=== PATIENT | male | born 1985 | race Caucasian/White ===

== ENCOUNTER 2024-03-12 15:04 | Emergency (ER) | payer BC, SELFPAY ==
[2024-03-12 15:07] VITALS: BP 131/73; PULSE 60; RESP 16; TEMP 35.9; O2SAT 99; BMI 22.4
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
== END 2024-03-12 16:00 | disposition home or self-care (01) ==
PROVIDERS: Emergency Provider Emergency Medicine
DX: S00.93XA Contusion of unspecified part of head, initial encounter (principal); S62.634A Displaced fracture of distal phalanx of right ring finger, initial encounter for closed fracture; Y04.2XXA Assault by strike against or bumped into by another person, initial encounter
CPT/HCPCS: 70450; 73140; 99284

== ENCOUNTER 2024-04-22 13:14 | Emergency (ER) | payer MEDICAID, SELFPAY ==
[2024-04-22 13:18] VITALS: BP 184/107; PULSE 102; RESP 20; TEMP 36.1; O2SAT 99
--- NOTE | 2024-04-22 13:38 | ED.NURSE ---
Called and spoke w/ Courtney from Poison Control. Pt reported taking yohimbine 2200mg x 4. Per Poison Control, should check EKG for QT prolongation (this is rare) and could manage symptoms w/ ativan. Peak effect is in 45 - 60 min and the half-life is 10 - 15 minutes. Expected side effects are tachycardia, anxiety, nausea/vomiting, anxiety and hypertension. Rarely, seizures have been reported. She will call back later for follow-up. updated on the recommendations.
--- NOTE | 2024-04-22 13:39 | ED.GENADULT ---
HPI - General Adult General Chief complaint: Arrhythmia/Palpitations Stated complaint: Elevated heartrate; medication reaction Time Seen by Provider: 04/22/24 13:16 History of Present Illness HPI narrative: This 38-year-old male comes in feeling shaky after taking 4 tablets of yohimbine. He states that each 1 was 2200 mg. He has not taken this before and did it for experimental reasons. He states that he is feeling tremulous and has some generalized discomfort and chest discomfort. He arrives here with heart rate around 100 beats per minute with elevated blood pressure and the systolic value of 184. He does not take any other medications and denies using any street drugs or alcohol. Related Data Home Medications ?Medication ?Instructions ?Recorded ?Confirmed No Known Home Medications 03/12/24 04/22/24 Allergies Allergy/AdvReac Type Severity Reaction Status Date / Time Penicillins Allergy Mild Hives Verified 04/22/24 13:21 Review of Systems Status of ROS: Reports: 10 or more systems reviewed and unremarkable except as noted in History and below Narrative: Constitutional: No fevers, no weight gain or loss. Eyes: No discharge. No vision changes. HENT: No congestion, no sore throat, no ear pain. Cardiovascular: He reports chest discomfort. Respiratory: No shortness of breath, no wheezes, no cough. Gastrointestinal: No abdominal pain, no vomiting, no diarrhea. Genitourinary: No dysuria, no hematuria. Musculoskeletal: Normal range of motion. Skin: No rashes, no pruritis. Neurological: No dizziness, weakness, sensory change, speech change. He feels tremulous. Endo/Heme/Allergies: No bruising or bleeding. No polydipsia. Pysch: no suicidality, no anxiety, no insomnia. All other systems reviewed and are negative. [facility] Social History Smoking Status: Current every day smoker Do you use any of these nicotine containing products: Vaping Products How often do you have a drink containing alcohol: never AUDIT-C Alcohol total score: 0 Non-prescribed substance use: denies use Exam Narrative: Exam Narrative: Constitutional: Well-developed, well-nourished, no acute distress. HEENT: Normocephalic, atraumatic. Neck: Normal range of motion. Nontender. Supple. Heart: Regular. No murmurs. Normal rate. Borderline tachycardia. Intact distal pulses. Lungs: Clear to auscultation. No chest discomfort. No wheezes, rhonchi, or rales. Abdomen: Normal bowel sounds. Nontender. No rebound tenderness. Genitalia: Deferred. Back: No midline tenderness. Normal range of motion. Extremities: Normal range of motion. No injury. Skin: Intact. No rash. Warm. No pallor. Generalized erythema. Neurologic: No altered sensation. No weakness. Alert and oriented. Psychiatric: No suicidality. No anxiety or depression. No insomnia. Nursing notes and vitals signs are reviewed. Const: Vital Signs, click to edit/add: Vital Signs - 24 hr 04/22/24 13:18 Temperature 96.9 F L Pulse Rate [Pulse Oximeter] 102 H Respiratory Rate 20 Blood Pressure [Ri ght Upper Arm] 184/107 H Pulse Oximetry 99 Oxygen Delivery Me thod Room Air Course Vital Signs Vital signs: Initial Vital Signs Temperature 96.9 F L 04/22/24 13:18 Temperature Source Temporal Artery Scan 04/22/24 13:18 Pulse Rate 102 H 04/22/24 13:18 Pulse Rhythm Regular 04/22/24 13:18 Respiratory Rate 20 04/22/24 13:18 Blood Pressure 184/107 H 04/22/24 13:18 Blood Pressure Mean 132 H 04/22/24 13:18 Blood Pressure Position Sitting 04/22/24 13:18 Pulse Oximetry 99 04/22/24 13:18 Oxygen Delivery Method Room Air 04/22/24 13:18 Vital Signs Temperature 96.9 F L 04/22/24 13:18 Pulse Rate 102 H 04/22/24 13:18 Respiratory Rate 20 04/22/24 13:18 Blood Pressure 184/107 H 04/22/24 13:18 Pulse Oximetry 99 04/22/24 13:18 Oxygen Delivery Method Room Air 04/22/24 13:18 Temperature 96.9 F L 04/22/24 13:18 Pulse Rate 102 H 04/22/24 13:18 Respiratory Rate 20 04/22/24 13:18 Blood Pressure 184/107 H 04/22/24 13:18 Pulse Oximetry 99 04/22/24 13:18 Oxygen Delivery Method Room Air 04/22/24 13:18 Medications Administered Medications: Discontinued Medications Generic Name Dose Route Start Last Admin Trade Name Freq PRN Reason Stop Dose Admin Lorazepam 1 mg 04/22/24 13:39 10/04/24 13:52 Lorazepam 1 Mg Tablet PO 04/22/24 13:40 1 mg ONCE ONE Administration Medical Decision Making MDM Narrative Medical decision making narrative: This patient comes in with symptoms from taking 4 pills of Yohimbine 2200 mg each. Poison control was contacted and stated that she would benefit from 1 dose of a benzodiazepine. In certain cases it could lead to some prolongation of the QT interval. The patient states that now that he took this about 2 hours prior to arrival. The half life is around I half an hour to 2 hours so this will metabolize rather quickly. EKG shows normal sinus rhythm without any abnormalities. The patient did receive Ativan 1 mg orally and he is feeling better. He is okay to be discharged home. ECG Data Attestation: I personally reviewed and interpreted this ECG as follows: Interpretation: Normal sinus rhythm. Rate is 83 beats per minute. There are no ST or T-wave abnormalities. Discharge Plan Discharge Clinical Impression: Adverse drug effect Patient Disposition: Home, Self-Care Condition: Improved Additional Instructions: Avoid yohimbine. Use [id number] medicines as needed and directed. Follow up with MD return if worsening.. Prescriptions: No Action No Known Home Medications Follow Up/Referrals: Provider,Not a Local [Primary Care Provider] - Stand Alone Forms: [employer] Info Instructions
[2024-04-22] MEDS: LORazepam 1 MG TABLET PO (13:52)
== END 2024-04-22 14:23 | disposition home or self-care (01) ==
PROVIDERS: Emergency Provider Emergency Medicine Emergency Medical Services
DX: R00.2 Palpitations (principal); T50.995A Adverse effect of other drugs, medicaments and biological substances, initial encounter
CPT/HCPCS: 93005; 99284; A9270

== ENCOUNTER 2024-09-24 07:57 | Emergency (ER) | payer MEDICAID, SELFPAY ==
--- OUTSIDE RECORDS SUMMARY | 2024-09-24 07:59 | XMS_ITS | Clinical Summary ---
Author Organization [facility] Address [address] [place] [id number] Care Team Providers Care Umbrella Frame Maker Name Role Phone Debra Ingram Primary Care Provider Allergies Active Allergy Reactions Criticality Noted Date Comments Penicillin G Benzathin,Procain *Unknown - Pt Doesn't Remember 03/11/2011 Medications OLANzapine (ZYPREXA ZYDIS) 10 mg disintegrating tabletIndications:M oderate recurrent major depression (HC),Chemical dependency (HC) Take 1 tablet by mouth at bedtime. 30 tablet 2 4 Active OLANzapine (ZYPREXA ZYDIS) 5 mg disintegrating tabletIndications:M oderate recurrent major depression (HC),Chemical dependency (HC) Take 1 tablet by mouth every 6 hours if needed for Agitation. 30 tablet 0 4 Active Active Problems Problem Noted Date Diagnosed Date Eczema 05/08/2014 Overdose intentional with benadryl 01/05/2013 Suicidal intent 01/05/2013 Chemical dependency 01/05/2013 Alcohol dependence, daily use 12/11/2012 Moderate recurrent major depression 12/11/2012 Nicotine dependence 12/11/2012 Cannabis dependence 12/11/2012 Immunizations Immunization Administration Dates Next Due Meningococcal Vaccine (Menomune) 10/03/2005 Pneumococcal Poly,23-Valent (Pneumovax) 08/04/19 15 Tdap 12/10/2012 Family History Medical History Relation Name Comments Hypertension Brother 2 Drug Abuse Maternal Aunt 2 Cancer Maternal Grandfather lung Alcoholism Maternal Uncle 1 2 Cancer Maternal Uncle 2 stomach Drug Abuse Maternal Uncle 3 2 Arthritis Mother Cancer Mother lung Relation Name Status Comments Brother 1 Alive Brother 2 Father Alive Maternal Aunt Maternal Grandfather Maternal Grandmother Maternal Uncle 1 Maternal Uncle 2 Maternal Uncle 3 Mother Paternal Grandfather Paternal Grandmother Social History Tobacco Use Types Packs/Day Years Used Date Smoking Tobacco: Every Day Cigarettes 1 10 Alcohol Use Standard Drinks/Week Comments Yes 0 (1 standard drink = 0.6 oz pure alcohol) drinks 1/2 to one pint per month Sex and Gender Information Value Date Recorded Sex Assigned at Not on file 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 Gender Identity Not on file Sexual Orientation Not on file Obstetrics History Last Filed Vital Signs Vital Sign Reading Time Taken Comments Blood Pressure 118/71 05/09/2014 4:35 PM CDT Pulse 90 05/09/2014 4:35 PM CDT Temperature 36.2 C (97.1 F) 05/09/2014 4:35 PM CDT Respiratory Rate 16 05/09/2014 4:35 PM CDT Oxygen Saturation 99% 05/09/2014 4:35 PM CDT Inhaled Oxygen Concentration - - Weight 62.4 kg (137 lb 9.6 oz) 05/07/2014 6:07 P M CDT Height 175.3 cm (5' 9.02) 05/07/2014 6:07 PM CD T Body Mass Index 20.31 05/07/2014 6:07 PM CDT Plan of Treatment Health Maintenance Due Date Last Done Comments Depression screening for age 12+ 1997 HIV for age 15-65 2000 BMI (ht and wt on same day) for age 18+ 2003 Hepatitis C screening for ag e 18-79 2003 Lipids for age 35-44 2020 Tetanus booster 12/10/2022 12/10/2012 ([place]) Influenza for age 9-49 03/20/2024 COVID-19 vaccine series ( season) 2024 Tdap Completed 12/10/2012 Pneumococcal series for age 6-49 Aged Out 08/04/19 15 No longer eligible based on patient's age to complete this topic Insurance [facility] Advance Directives * Full Code (Latest Code Status on File) Date Activated Date Inactivated Comments 05/07/2014 6:12 PM 05/10/2014 4:22 PM * Full Code Date Activated Date Inactivated Comments 01/06/2013 7:02 PM 01/17/2013 3:01 PM * Full Code Date Activated Date Inactivated Comments 01/05/2013 2:43 AM 01/06/2013 7:02 PM * Full Code Date Activated Date Inactivated Comments 12/10/2012 3:32 PM 12/16/2012 11:41 AM Care Teams Umbrella Frame Maker Relationship Specialty Start Date End Date Debra Ingram MBBS [address] [place] [id number] PCP - General Internal Medicine 03/18/24
--- OUTSIDE RECORDS SUMMARY | 2024-09-24 07:59 | XMS_ITS | Clinical Summary ---
Author Organization [facility] Address [address] [address] Phone Care Team Providers Care Director Non Profit Name Role Phone Unavailable Primary Care Provider Unavailabl e Allergies Active Allergy Reactions Criticality Noted Date Comments Penicillins Unknown 08/14/2020 Medications LORazepam (Ativan) 0.5 MG tablet TAKE 1 TABLET BY MOUTH DAILY NEEDED 04/11/2022 Active Medical Cannabis Mar Message Only. Active hydrOXYzine HCl (Atarax) 25 MG tablet Take 1 to 2 Tablets by mouth every six hours as needed for anxiety. 30 Tablet 08/11/2023 3:11 PM [employer] 08/11/2023 Active Active Problems Problem Noted Date Diagnosed Date Chemical dependency 01/05/2013 Alcohol dependence, daily use 12/11/2012 Cannabis dependence 12/11/2012 Moderate recurrent major depression 12/11/2012 Immunizations Name Administration Dates Next Due Tdap (7 years and older) 12/23/2022 Social History Tobacco Use Types Packs/Day Years Used Date Smoking Tobacco: Every Day Cigarettes Smokeless Tobacco: Former PHQ-2 Answer Date Recorded PHQ-2 Total 0 04/11/2023 [facility] Custom IPV Answer Date Recorded Do you feel UNSAFE in any of your personal relationships with your family members or any other acquaintances? No 2023 Sex and Gender Information Value Date Recorded Sex Assigned at Not on file Legal Sex Male 7:10 AM [employer] Gender Identity Not on file Sexual Orientation Not on file Obstetrics History Last Filed Vital Signs Vital Sign Reading Time Taken Comments Blood Pressure 128/81 11/02/2023 3:15 AM CDT Pulse 50 11/02/2023 3:12 AM CDT Temperature 37.2 C (98.9 F) 11/02/2023 3:12 AM CDT Respiratory Rate 18 11/02/2023 3:12 AM CDT Oxygen Saturation 98% 11/02/2023 3:15 AM CDT Inhaled Oxygen Concentration - - Weight 72.6 kg (160 lb) 08/29/2023 7:21 AM [employer] Height 170.2 cm (5' 7) 08/11/2023 2:39 PM [employer] Body Mass Index 25.06 08/11/2023 2:39 PM [employer] Plan of Treatment Health Maintenance Due Date Last Done Comments Hepatitis B Vaccine (Standin g Order) (1 of 3 - 19+ 3-dose series) 2004 Pneumococcal/PCV20 Vaccine: Pediatrics (2-5 yrs) and At-Risk Patients (6-49 yrs) (Standing Order) (1 of 2 - PCV) 2004 COVID-19 Vaccine (2023-2 5 season) 2024 Influenza Vaccine Seasonal (Standing Order) (#1) 2024 TETANUS (Standing Order) 12/23/2032 12/23/2022 PERTUSSIS (Standing Order) Completed 12/23/2022 HPV Vaccine (Standing Order) Aged Out No longer eligible based on patient's age to complete this topic [place] [address] [place] [address]
[2024-09-24 08:18] VITALS: BP 113/75; PULSE 86; RESP 18; TEMP 36.1; O2SAT 97; BMI 22.8
--- NOTE | 2024-09-24 08:33 | ED.NAVMDI ---
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 States the symptoms started 1 hour ago. Does admit to smoking marijuana states he does not smoke over a week. Has previously been diagnosed with cyclic vomiting syndrome he states the symptoms seem slightly worse. Has had multiple CT scans before with no concerning abnormalities seen. States he has diffuse abdominal discomfort and is having chills. Has vomited multiple times. States Zofran usually helps a lot. Denies fevers, chest pain, shortness of breath, weakness, numbness. He does states he feels lightheaded. Related Data Previous Rx's ?Medication ?Instructions ?Recorded ondansetron 4 mg disintegrating 4 mg PO Q6H #20 tabs 09/24/24 tablet Allergies Allergy/AdvReac Type Severity Reaction Status Date / Time Penicillins Allergy Mild Hives Verified 04/22/24 13:21 Review of Systems Status of ROS: Reports: 10 or more systems reviewed and unremarkable except as noted in History and below [facility] Social History Smoking Status: Current every day smoker Do you use any of these nicotine containing products: Vaping Products How often do you have a drink containing alcohol: never AUDIT-C Alcohol total score: 0 Non-prescribed substance use: denies use Exam Narrative: Exam Narrative: Const: Well-nourished, Well-developed, in moderate distress Eyes: PERRL, no conjunctival injection, and symmetrical lids HENT: Atraumatic external nose and ears. Moist mucous membranes. Neck: Symmetric, trachea midline, No thyromegaly. CVS: RRR, No murmurs or gallops. Peripheral pulses 2+ and equal in all extremities RESP: Unlabored respiratory effort. Clear to auscultation bilaterally. GI: Nontender/Nondistended, No rebound or guarding. MSK:Extremities w/o deformity, Normal Active ROM Skin: Warm, Dry. No rashes or lesions. Neuro: Normal Muscle tone, No focal neurological deficits. Psych: Awake, Alert, & Oriented x3. Appropriate mood and affect. Const: Vital Signs, click to edit/add: Vital Signs - 24 hr 09/24/24 08:18 Temperature 97.0 F L Pulse Rate [Pulse Oximeter] 86 Respiratory Rate 18 Blood Pressure [Ri ght Upper Arm] 113/75 Pulse Oximetry 97 Oxygen Delivery Me thod Room Air Course Vital Signs Vital signs: Initial Vital Signs Temperature 97.0 F L 09/24/24 08:18 Temperature Source Temporal Artery Scan 09/24/24 08:18 Pulse Rate 86 09/24/24 08:18 Respiratory Rate 18 09/24/24 08:18 Blood Pressure 113/75 09/24/24 08:18 Blood Pressure Mean 87 09/24/24 08:18 Blood Pressure Position Sitting 09/24/24 08:18 Pulse Oximetry 97 09/24/24 08:18 Oxygen Delivery Method Room Air 09/24/24 08:18 Vital Signs Temperature 97.0 F L 09/24/24 08:18 Pulse Rate 86 09/24/24 08:18 Respiratory Rate 18 09/24/24 08:18 Blood Pressure 113/75 09/24/24 08:18 Pulse Oximetry 97 09/24/24 08:18 Oxygen Delivery Method Room Air 09/24/24 08:18 Temperature 97.0 F L 09/24/24 08:18 Pulse Rate 86 09/24/24 08:18 Respiratory Rate 18 09/24/24 08:18 Blood Pressure 113/75 09/24/24 08:18 Pulse Oximetry 97 09/24/24 08:18 Oxygen Delivery Method Room Air 09/24/24 08:18 Medications Administered Medications: Discontinued Medications Generic Name Dose Route Start Last Admin Trade Name Freq PRN Reason Stop Dose Admin Droperidol 2.5 mg 09/24/24 09:45 09/24/24 09:51 Droperidol 2.5 Mg/Ml Inj IV 09/24/24 09:46 2.5 mg ONCE ONE Administration Haloperidol Lactate 5 mg 09/24/24 08:59 09/24/24 09:09 Haloperidol 5 Mg/Ml Inj IV 09/24/24 09:00 5 mg ONCE ONE Administration Ketorolac Tromethamine 15 mg 09/24/24 10:01 09/24/24 10:13 Ketorolac 15 Mg/Ml Inj IVP 09/24/24 10:02 15 mg ONCE ONE Administration Ondansetron HCl 4 mg 09/24/24 08:32 09/24/24 08:36 Ondansetron Odt 4 Mg Tab PO 09/24/24 08:33 4 mg ONCE ONE Administration MDM - Nausea/Vomiting/Diarrhea MDM Narrative Medical decision making narrative: Patient is a 39-year-old male presenting for nausea and vomiting. Does have history of cannabinoid hyperemesis syndrome. Denies smoking for the past week. Initially he does want to try Zofran and not having IV so this was ordered. Zofran did not help so I will order some basic labs including CBC, CMP, lipase and give him Haldol for his vomiting. I will hold off on any CT imaging at this time as he has had multiple CTs in the past with no concerning findings seen. I believe another CT would be unnecessary radiation and is very unlikely to find anything of significance. He was still having some nausea after the Zofran so lab work and Haldol were given. After this he was still having some symptoms since started having some abdominal pain. Toradol given for the abdominal pain. Considering he has had Zofran and Haldol I will order a EKG prior to the door. All to make sure he does not have a prolonged QTC. QTC via the Bazett formula is 444 and it is 436 via the Fridericia formula he is on the borderline of possible prolonged QT. Droperidol was ordered. He is feeling better after the droperidol. Patient would like to go home at this time was Zofran. Will do repeat EKG. Repeat EKG showing improved QT interval. Do feel comfortable sending this patient home Zofran. Lab work returned showing elevated LFTs. ALT higher than AST. Does have history of alcohol abuse but these liver enzymes are more consistent with hepatitis. He also has elevated indirect bilirubin and LDH. This is consistent with hemolytic process or hepatitis. His hemoglobin is normal. Will check for hepatitis-B and hepatitis-C. Hepatitis a send out lab will be ordered. Lipase within normal limits. I do not believe he has obstruction causing his elevated liver enzymes. Does a history of drug use but denies IV drug use. I told him I would like to do an ultrasound at this time to look at any possible liver disease but he declined as he states he is not having sure insert is currently working on getting insurance. Does state he is going to follow-up as soon as he gets insurance. I informed him the importance of follow-up and that this could lead to worsening symptoms. He states he understands. Patient will be discharged. Lab Data Labs: Lab Results 09/24/24 09/24/24 09/24/24 Range/Units 09:00 09:44 10:14 WBC 7.31 (4.50-11.00) K/uL RBC 4.69 (4.30-5.90) m/uL Hgb 15.4 (13.5-17.5) gm/dL Hct 42.9 (37.0-53.0) % MCV 92 (80-100) fL MCH 33 (26-34) pg MCHC 36 (32-36) gm/dL RDW Coeff of Cole 12.6 (11.5-15.5) % Plt Count 175 (140-440) K/uL Neut % (Auto) 66.7 (42.0-72.0) % Lymph % (Auto) 22.6 (20-44) % Juab % (Auto) 8.5 (0.0-11.0) % Eos % (Auto) 1.4 (0.0-7.0) % Baso % (Auto) 0.5 (0.0-3.0) % Neut # (Auto) 4.88 (1.7-7.0) K/uL Lymph # (Auto) 1.65 (0.90-2.90) K/uL Juab # (Auto) 0.60 (0.00-0.90) K/UL Eos # (Auto) 0.10 (0.00-0.50) K/uL Baso # (Auto) 0.04 (0.00-0.30) K/uL Abs Immat Gran (auto) 0.02 (0.00-0.30) K/uL Imm/Tot Granulo (auto) 0.3 % INR 1.03 (0.91-1.10) Sodium 136 (135-149) mmol/L Potassium 4.2 (3.6-5.1) mmol/L Chloride 100 (96-114) mmol/L Carbon Dioxide 19 L (20-32) mmol/L Anion Gap 17 H (7-15) mEq/L BUN 21 (5-24) mg/dL Creatinine 0.7 (0.5-1.5) mg/dL Estimated Creat Clear 136.35 Estimated GFR 120 ml/min Glucose 129 H (60-115) mg/dL Calcium 9.6 (8.4-10.6) mg/dL Total Bilirubin 1.7 H (0.1-1.5) mg/dL Direct Bilirubin 0.6 H (0.0-0.5) mg/dL AST 156 H (12-35) U/L ALT 350 H (4-50) U/L Alkaline Phosphatase 63 (40-150) U/L Lactate Dehydrogenase 379 H (120-246) U/L Total Protein 8.2 (6.0-8.3) g/dL Albumin 5.1 H (3.3-5.0) g/dL Lipase 57 (23-300) U/L SARS-CoV-2 (PCR) (Negative) Influenza Type A (PCR) (Negative) Influenza Type B (PCR) (Negative) RSV (PCR) (Negative) Lab Acknowledgement Test Added Test Added 09/24/24 Range/Units 10:20 WBC (4.50-11.00) K/uL RBC (4.30-5.90) m/uL Hgb (13.5-17.5) gm/dL Hct (37.0-53.0) % MCV (80-100) fL MCH (26-34) pg MCHC (32-36) gm/dL RDW Coeff of Cole (11.5-15.5) % Plt Count (140-440) K/uL Neut % (Auto) (42.0-72.0) % Lymph % (Auto) (20-44) % [place] % (Auto) (0.0-11.0) % Eos % (Auto) (0.0-7.0) % Baso % (Auto) (0.0-3.0) % Neut # (Auto) (1.7-7.0) K/uL Lymph # (Auto) (0.90-2.90) K/uL [place] # (Auto) (0.00-0.90) K/UL Eos # (Auto) (0.00-0.50) K/uL Baso # (Auto) (0.00-0.30) K/uL Abs Immat Gran (auto) (0.00-0.30) K/uL Imm/Tot Granulo (auto) % INR (0.91-1.10) Sodium (135-149) mmol/L Potassium (3.6-5.1) mmol/L Chloride (96-114) mmol/L Carbon Dioxide (20-32) mmol/L Anion Gap (7-15) mEq/L BUN (5-24) mg/dL Creatinine (0.5-1.5) mg/dL Estimated Creat Clear Estimated GFR ml/min Glucose (60-115) mg/dL Calcium (8.4-10.6) mg/dL Total Bilirubin (0.1-1.5) mg/dL Direct Bilirubin (0.0-0.5) mg/dL AST (12-35) U/L ALT (4-50) U/L Alkaline Phosphatase (40-150) U/L Lactate Dehydrogenase (120-246) U/L Total Protein (6.0-8.3) g/dL Albumin (3.3-5.0) g/dL Lipase (23-300) U/L SARS-CoV-2 (PCR) Negative SARS-CoV-2 (Negative) Influenza Type A (PCR) Negative PCR FLU A (Negative) Influenza Type B (PCR) Negative PCR FLU B (Negative) RSV (PCR) Negative PCR RSV (Negative) Lab Acknowledgement ECG Data Attestation: I personally reviewed and interpreted this ECG as follows: Prior ECG tracings: available for review Interpretation: Initial EKG normal sinus rhythm with a rate of 67 beats per minute, normal CO interval, borderline QT interval, normal axis, no T-wave or ST abnormalities Repeat EKG shows sinus bradycardia with a rate 55 beats per minute, normal intervals, normal axis, no ST or T-wave abnormalities. Both EKGs appears similar previous EKG on file. Discharge Plan Discharge Clinical Impression: Elevated liver enzymes Nausea & vomiting Qualifiers: Vomiting type: unspecified Qualified Code(s): R11.2 - Nausea with vomiting, unspecified Patient Disposition: Home, Self-Care Condition: Improved Instructions: Acute Nausea and Vomiting (ED) Additional Instructions: Take the Zofran as needed for nausea. He do of elevated liver enzymes which I do believe he needs close follow-up with the primary care provider on. I did offer an ultrasound here in the emergency department but you stated you would rather follow up outpatient. Make sure you follow-up. Also recommend abstaining from all drugs and alcohol. Prescriptions: New ondansetron 4 mg tablet,disintegrating 4 mg PO Q6H Qty: 20 0RF Follow Up/Referrals: Provider,Not a Local [Primary Care Provider] - Stand Alone Forms: Change [facility] Info Instructions
[2024-09-24] MEDS: ONDANSETRON ODT 4 MG TAB PO (08:36)
--- OUTSIDE RECORDS SUMMARY | 2024-09-24 08:53 | XMS_ITS | Clinical Summary ---
Author Organization [facility] Address [address] [address] Phone Care Team Providers Care Hop Picker Name Role Phone Unavailable Primary Care Provider [...] for anxiety. 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
--- OUTSIDE RECORDS SUMMARY | 2024-09-24 08:53 | XMS_ITS | Clinical Summary ---
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 Gender Identity Not on file Sexual Orientation [...] age 35-44 2020 Tetanus booster 12/10/2022 12/10/2012 COVID-19 vaccine series (2023- season) 2024 Influenza Vaccine (#1) 2024 Tdap Completed 12/10/2012 Pneumococcal series for age 6-49 Aged Out 08/04/19 15 No longer eligible based on patient's age to complete this topic Insurance [facility] Advance Directives * Full Code (Latest Code [...] 3:32 PM 12/16/2012 11:41 AM Care Teams Metal Window Frame Maker Relationship Specialty Start Date End Date Debra Ingram MBBS [address] [address] PCP - General Internal Medicine 03/18/24
[2024-09-24] MEDS: HALOPERIDOL 5 MG/ML INJ IV (09:09)
[2024-09-24 09:17] LABS: Basophils Absolute Auto 0.04 K/uL (0.00-0.30); Basophils Percent Auto 0.5 % (0.0-3.0); Eosinophils Percent Auto 1.4 % (0.0-7.0); Hematocrit 42.9 % (37.0-53.0); Hemoglobin* 15.4 gm/dL (13.5-17.5); Immature Granulocytes Abs Auto 0.02 K/uL (0.00-0.30); Immature Granulocytes Pct Auto 0.3 %; Lymphocytes Absolute Auto 1.65 K/uL (0.90-2.90); Lymphocytes Percent Auto 22.6 % (20-44); Mean Corpuscular HGB Conc 36 gm/dL (32-36); Mean Corpuscular Hemoglobin 33 pg (26-34); Mean Corpuscular Volume 92 fL (80-100); Monocytes Percent Auto 8.5 % (0.0-11.0); Neutrophils Absolute Auto 4.88 K/uL (1.7-7.0); Neutrophils Percent Auto 66.7 % (42.0-72.0); Platelet Count* 175 K/uL (140-440); RDW Coefficient of Variation % 12.6 % (11.5-15.5); Red Blood Count 4.69 m/uL (4.30-5.90); White Blood Count* 7.31 K/uL (4.50-11.00)
[2024-09-24 09:25] LABS: Slide Review Reflex No
[2024-09-24 09:30] LABS: Albumin* 5.1 g/dL (3.3-5.0); Chloride* 100 mmol/L (96-114)
[2024-09-24 09:31] LABS: Potassium* 4.2 mmol/L (3.6-5.1); Sodium* 136 mmol/L (135-149)
[2024-09-24 09:33] LABS: Alkaline Phosphatase* 63 U/L (40-150); Anion Gap 17 mEq/L (7-15); Aspartate Amino Transferase* 156 U/L (12-35); Bilirubin Total* 1.7 mg/dL (0.1-1.5); Blood Urea Nitrogen* 21 mg/dL (5-24); Carbon Dioxide* 19 mmol/L (20-32); Creatinine* 0.7 mg/dL (0.5-1.5); Est. Creatinine Clearance* 136.35; Estimated Glomerular Filt Rate 120 ml/min; Glucose* 129 mg/dL (60-115); Lipase* 57 U/L (23-300); Total Protein* 8.2 g/dL (6.0-8.3)
[2024-09-24 09:34] LABS: Alanine Aminotransferase* 350 U/L (4-50); Calcium* 9.6 mg/dL (8.4-10.6)
[2024-09-24] MEDS: droperidoL 2.5 MG/ML inj IV (09:51)
[2024-09-24 10:07] LABS: Bilirubin Direct* 0.6 mg/dL (0.0-0.5)
[2024-09-24] MEDS: KETOROLAC 15 MG/ML inj IVP (10:13)
[2024-09-24 10:26] LABS: Lactate Dehydrogenase* 379 U/L (120-246)
[2024-09-24 10:41] LABS: INR 1.03 (0.91-1.10); Prothrombin Time 14.3 Seconds
[2024-09-24 11:07] LABS: PCR FLU A Negative PCR FLU A (Negative); PCR FLU B Negative PCR FLU B (Negative); PCR RSV Negative PCR RSV (Negative); SARS PCR* Negative SARS-CoV-2 (Negative)
[2024-09-27 21:56] LABS: Hep A Ab, IgM Negative (Negative); Hep B Core Ab, IgM Negative (Negative); Hep B Surface Antigen Negative (Negative); Hep C Ab by CIA Index 0.15 IV; Hep C Ab by CIA Interp Negative (Negative)
== END 2024-09-24 11:34 | disposition home or self-care (01) ==
PROVIDERS: Emergency Provider Student in an Organized Health Care Education/Training Program
DX: R74.01 Elevation of levels of liver transaminase levels (principal); R11.2 Nausea with vomiting, unspecified
CPT/HCPCS: 36415; 80053; 80074; 82248; 83615; 83690; 85025; 85610; 86708; 87631; 93005; 96372; 96374; 99284; A9270; J1630; J1790; J1885

== ENCOUNTER 2024-09-26 07:47 | Emergency (ER) | payer MEDICAID, SELFPAY ==
--- OUTSIDE RECORDS SUMMARY | 2024-09-26 07:49 | XMS_ITS | Clinical Summary ---
Author Organization [facility] Address [address] [address] Phone Care Team Providers Care Reservations Agent Name Role Phone Unavailable Primary Care Provider [...] for anxiety. 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
[2024-09-26 07:53] VITALS: PULSE 70; RESP 18; TEMP 36.1; O2SAT 100; BMI 21.9
--- NOTE | 2024-09-26 08:03 | ED.ABDPAIN ---
HPI - Abdominal Pain General Time Seen by Provider: 08:03 Date Seen: 09/26/24 Chief Complaint: Abdominal Pain Stated Complaint: very sick, short of breath and vomiting Time Seen by Provider: 09/26/24 08:02 Source: patient, RN notes reviewed and old records reviewed Mode of arrival: ambulatory Limitations: no limitations History of Present Illness HPI narrative: This 39-year-old male is ambulatory into the ED with recurrent severe abdominal pain. He is feeling upper abdominal and epigastric pain. Was in on September 24 to the ER, had elevated liver enzymes but thought was initially that was a presentation of cannabis hyperemesis syndrome or cyclical vomiting. Patient does have a history of that. He states yesterday he felt better, ate some grilled cheese, was able to eat and drink. This morning he awoke and had severe pain. He stated to nursing staff he is feeling short of breath but is upper abdominal pain is so severe that he thinks this is causing him to breathe fast. He does drink some alcohol but has stated adamantly that he is not drink anything significant, not prior to the September 24 visit either. He has had no travel. No fevers or chills, no urinary symptoms. He opted to not have ultrasonography done with his elevated liver enzymes on September 24. Hepatitis panel is still pending. His upper abdominal pain is severe, is requesting pain management. He did have nausea and vomiting this morning, tried drink and it came right back up. He has had some diarrhea, nonbloody. Related Data Previous Rx's ?Medication ?Instructions ?Recorded ondansetron 4 mg disintegrating 4 mg PO Q6H #20 tabs 09/24/24 tablet olanzapine 5 mg tablet (Zyprexa) 5 mg PO DAILY #10 tabs 09/26/24 Allergies Allergy/AdvReac Type Severity Reaction Status Date / Time Penicillins Allergy Mild Hives Verified 09/26/24 07:56 Review of Systems Status of ROS Reports: 6 or more systems reviewed and unremarkable except as noted in History and below [facility] Medical History (Updated 09/26/24 @ 12:00 by Lamar Gamble MD) Cyclic vomiting syndrome ?R11.15 - Cyclical vomiting syndrome unrelated to migraine (ICD-10) Social History Smoking Status: Current every day smoker Do you use any of these nicotine containing products: Vaping Products How often do you have a drink containing alcohol: never How often do you have six or more drinks on one occasion: Never AUDIT-C Alcohol total score: 0 Non-prescribed substance use: marijuana (any form) Exam Const: Vital Signs, click to edit/add: Vital Signs - 24 hr 09/26/24 07:53 09/26/24 08:11 09/26/24 08:29 Temperature 97 F L Pulse Rate [Right Pulse Oximeter] 70 Respiratory Rate 18 Blood Pressure [Ri ght Upper Arm] 140/91 H Pulse Oximetry 100 97 Oxygen Delivery Me thod Room Air 09/26/24 10:04 Temperature Pulse Rate [Right Pulse Oximeter] 84 Respiratory Rate 18 Blood Pressure [Ri ght Upper Arm] 139/78 Pulse Oximetry 97 Oxygen Delivery Me thod Room Air Patient is alert, interactive, seems to be uncomfortable. Does appear to be hyperventilating/breathing rapidly. He is able to speak in complete sentences, voice is normal, no hoarseness, no stridor. Pupils equal round reactive, sclera clear, no scleral icterus. Symmetrical facial function. Neck supple, no adenopathy or masses. Lungs are clear, good air entry, no wheezing or crackles, no accessory muscle use. CV regular rate and rhythm, no murmur heard, normal S1-S2. Abdomen is soft, does complain of epigastric and right upper quadrant pain without rebound or guarding, do not feel any organomegaly. Bowel sounds are present. He has no lower extremity edema, nursing staff was placing IV when I initially came in. After his physical exam, he does get up and paces in the room. Documenting provider has reviewed patient's vital signs: yes Course Course ED Course: This is a 39-year-old male with history of cyclic vomiting syndrome returning today in the setting of severe upper abdominal pain with nausea vomiting and diarrhea, recent elevated liver functions. Will order IV Toradol, IV Zofran in L of IV fluids. Will see if this is sufficient for him. Certainly cyclic vomiting syndrome could be underlying etiology but have concern for recent elevated liver functions. He understands that I will be rechecking these. If these are elevated will definitely be trying to get him to agree to further imaging today. Hepatitis, biliary etiologies including choledocholithiasis, cholecystitis are all possible. May need to consider ultrasonography and possibly even CT. I do know that patient is had multiple prior abdominal CT imaging per his report from review of the last visit, none the less, may need to proceed with this pending outcome of labs and potential ultrasonography today. Pancreatitis is always a possibility as well. Reevaluation(s) Time of Reevaluation #1: 08:56 Reevaluation #1: Patient is still endorsing significant pain. Will give of subsequent dose of Toradol 15 mg IV, 5 mg IV Zyprexa. His liver functions are largely improved outside of ALT remaining more elevated. Hepatitis panel is pending. His venous blood gas is consistent with a hyperventilation that I was seeing. His lactate is elevated, will give a subsequent L of normal saline. I would say that seems to be more consistent with cyclic vomiting syndrome at this time. Have reviewed with patient, discussed that his liver enzymes are improving but the ALT is still most elevated. The LDH, bilirubin and AST are much better, some normalized. This could be underlying liver process but do not feel that this is current issue. Feel that the patient is indeed suffering from cyclic vomitting syndrome, he agrees with this. He states that he has not drank any alcohol in over a week, discussed that he could have insulted the liver with that use and now improving; one concern I have is that the ALT is still elevated. He does agree to proceed with US of his liver today. His lactate and labs do support dehydration, will be initiating another liter of NS. Time of Reevaluation #2: 11:55 Reevaluation #2: Patient is resting but awakens easily. Reviewed that his ultrasound is reassuring. Discussed the importance of refraining from alcohol in the future as well as marijuana. He is dehydrated, has not urinated yet. Will give him a 3rd L of fluids. We did discuss having some Zyprexa ODT at home, would maybe have him take this scheduled for the next few days to try to settle his symptoms down. Will give the liter of lactated Ringer's and plan on discharge after that. Time of Reevaluation #3: 12:59 Reevaluation #3: Nursing staff reports patient still has some retching and nausea. We will re-dose his IV Zofran, give him an oral dose of Zyprexa. We unfortunately do not have any further doses of IV Zyprexa to give him in pharmacy. Vital Signs Vital signs: Initial Vital Signs Temperature 97 F L 09/26/24 07:53 Temperature Source Temporal Artery Scan 09/26/24 07:53 Pulse Rate 70 09/26/24 07:53 Pulse Rhythm Regular 09/26/24 07:53 Respiratory Rate 18 09/26/24 07:53 Pulse Oximetry 100 09/26/24 07:53 Oxygen Delivery Method Room Air 09/26/24 07:53 Vital Signs Temperature 97 F L 09/26/24 07:53 Pulse Rate 70 09/26/24 07:53 Respiratory Rate 18 09/26/24 07:53 Pulse Oximetry 100 09/26/24 07:53 Oxygen Delivery Method Room Air 09/26/24 07:53 Temperature 97 F L 09/26/24 07:53 Pulse Rate 84 09/26/24 10:04 Respiratory Rate 18 09/26/24 10:04 Blood Pressure 139/78 09/26/24 10:04 Pulse Oximetry 97 09/26/24 10:04 Oxygen Delivery Method Room Air 09/26/24 10:04 Medications Administered Medications: Discontinued Medications Generic Name Dose Route Start Last Admin Trade Name Freq PRN Reason Stop Dose Admin Sodium Chloride 1,000 mls @ 500 mls/hr 09/26/24 08:12 09/26/24 09:50 0.9 % Sodium Chloride 1000 Ml IV 09/26/24 10:11 Infused .Q2H AN Infusion Sodium Chloride 1,000 mls @ 1,000 mls/hr 09/26/24 08:55 09/26/24 10:38 0.9 % Sodium Chloride 1000 Ml IV 09/26/24 09:54 Infused .Q1H AN Infusion Lactated Ringer's 1,000 mls @ 1,000 mls/hr 09/26/24 11:57 09/26/24 13:29 Lactated Ringers 1000 Ml IV 09/26/24 12:56 Infused .Q1H ONE Infusion Ketorolac Tromethamine 15 mg 09/26/24 08:11 09/26/24 08:18 Ketorolac 15 Mg/Ml Inj IVP 09/26/24 08:12 15 mg ONCE ONE Administration Ketorolac Tromethamine 15 mg 09/26/24 08:55 09/26/24 09:13 Ketorolac 15 Mg/Ml Inj IVP 09/26/24 08:56 15 mg ONCE ONE Administration Olanzapine 5 mg 09/26/24 08:55 09/26/24 09:13 Olanzapine 5 Mg/Ml Inj IVP 09/26/24 08:56 5 mg ONCE ONE Administration Olanzapine 5 mg 09/26/24 12:58 09/26/24 13:06 Olanzapine 5 Mg Tab.Rapdis PO 09/26/24 12:59 5 mg ONCE ONE Administration Ondansetron HCl 4 mg 09/26/24 08:11 09/26/24 08:18 Ondansetron 2 Mg/Ml Inj IVP 09/26/24 08:12 4 mg ONCE ONE Administration Ondansetron HCl 4 mg 09/26/24 12:58 09/26/24 13:05 Ondansetron 2 Mg/Ml Inj IVP 09/26/24 12:59 4 mg ONCE ONE Administration MDM - Abdominal Pain Lab Data Attestation: I reviewed the patient's lab results. Labs: Lab Results 09/26/24 09/26/24 Range/Units 08:10 08:36 WBC 7.83 (4.50-11.00) K/uL RBC 4.78 (4.30-5.90) m/uL Hgb 15.5 (13.5-17.5) gm/dL Hct 43.0 (37.0-53.0) % MCV 90 (80-100) fL MCH 32 (26-34) pg MCHC 36 (32-36) gm/dL RDW Coeff of Cole 12.2 (11.5-15.5) % Plt Count 203 (140-440) K/uL Neut % (Auto) 66.8 (42.0-72.0) % Lymph % (Auto) 23.5 (20-44) % [facility] % (Auto) 8.7 (0.0-11.0) % Eos % (Auto) 0.5 (0.0-7.0) % Baso % (Auto) 0.4 (0.0-3.0) % Neut # (Auto) 5.23 (1.7-7.0) K/uL Lymph # (Auto) 1.84 (0.90-2.90) K/uL [facility] # (Auto) 0.70 (0.00-0.90) K/UL Eos # (Auto) 0.04 (0.00-0.50) K/uL Baso # (Auto) 0.03 (0.00-0.30) K/uL Abs Immat Gran (auto) 0.01 (0.00-0.30) K/uL Imm/Tot Granulo (auto) 0.1 % ESR 4 (2-15) mm/hr VBG pH 7.644 H* (7.32-7.43) VBG pCO2 20 L (40-50) mmHG VBG pO2 38.6 (25-47) mmHG VBG HCO3 22 (21-28) mmol/L Sodium 136 (135-149) mmol/L Potassium 3.3 L (3.6-5.1) mmol/L Chloride 99 (96-114) mmol/L Carbon Dioxide 19 L (20-32) mmol/L Anion Gap 18 H (7-15) mEq/L BUN 17 (5-24) mg/dL Creatinine 0.8 (0.5-1.5) mg/dL Estimated Creat Clear 111.35 Estimated GFR 115 ml/min Glucose 141 H (60-115) mg/dL Lactate 3.2 H (0.5-1.9) mmol/L Calcium 10.1 (8.4-10.6) mg/dL Total Bilirubin 1.5 (0.1-1.5) mg/dL Direct Bilirubin 0.5 (0.0-0.5) mg/dL GGT 61 H (8-55) U/L AST 58 H (12-35) U/L ALT 227 H (4-50) U/L Alkaline Phosphatase 77 (40-150) U/L Lactate Dehydrogenase 214 (120-246) U/L Troponin I < 0.01 L (0.01-0.04) ng/mL C-Reactive Protein 0.7 (0.5-1.0) mg/dL NT-Pro-B Natriuret Pep 21 pg/mL Total Protein 8.0 (6.0-8.3) g/dL Albumin 5.0 (3.3-5.0) g/dL Amylase 83 (18-89) U/L Lipase 73 (23-300) U/L Urine Color Annabel A (Yellow) Urine Appearance Clear (Clear) Urine pH 6.5 (5.0-8.5) Ur Specific Benton 1.025 (1.000-1.030) Urine Protein 2+ A (Negative) Urine Glucose (UA) Negative (Negative) Urine Ketones 3+ A (Negative) Urine Blood Negative (Negative) Urine Nitrite Negative (Negative) Urine Bilirubin 2+ A (Negative) Urine Urobilinogen 1.0 (0.2-1.0) Ur Leukocyte Esterase Negative (Negative) Urine RBC 0-2 (0-2) Urine WBC 0-2 (0-5) Ur Squamous Epith Cells Few (None-Few) Urine Bacteria Moderate A (None) Urine Mucus Moderate A (None) Urine Opiates Screen Negative (Negative) Ur Oxycodone Screen Negative (Negative) Urine Methadone Screen Negative (Negative) Ur Barbiturates Screen Negative (Negative) U Tricyclic Antidepress Negative (Negative) Ur Phencyclidine Scrn Negative (Negative) Ur Amphetamines Screen Negative (Negative) U Methamphetamines Scrn Negative (Negative) U Benzodiazepines Scrn Negative (Negative) Urine Cocaine Screen Negative (Negative) U Marijuana (THC) Screen POSITIVE A (Negative) Ur Drug Screen Comment See Note Ethyl Alcohol < 0.01 L (0.01-0.03) % Imaging Data US - abdomen: Attestation: I have reviewed the pertinent imaging results. Radiologist's impression: Patient: TG RALPH Facility:?[facility] Patient ID:?[id number] Site Patient ID:?[id number]. Site :?[id number] Study:?US-Abdomen [facility]-09/26/2024 10:10:42 AM Ordering Physician:Blaine Newton Final Report: Indication: Right upper quadrant pain and abnormal liver enzymes. Technique: Sonography of the abdomen was performed limited to the structures discussed below Comparison: No prior relevant examinations Findings: The liver measures 15.8 centimeters. No focal mass. No intrahepatic biliary ductal dilation or perihepatic fluid collections. Echotexture is normal. The gallbladder appears normal Gallbladder wall thickness is 2 millimeters which is normal The common duct measures 5 millimeters which is normal. The pancreas is not fully visualized due to overlying bowel gas. The right kidney is unremarkable in size and appearance measuring 10.5 x 5.6 x 5.4 centimeters. No abnormal dilation of the aorta. Main portal vein is patent with appropriate direction of flow Impression: No visible cause for right upper quadrant pain and elevated liver function tests. Overall normal exam. However, the pancreas was not fully visualized due to overlying bowel gas. Dictated by Dallas Alexandre MD @ 09/26/2024 10:15:29 AM (Electronic Signature) Discharge Plan Discharge Clinical Impression: Acute dehydration, Cyclic vomiting syndrome Patient Disposition: Home, Self-Care Condition: Stable Instructions: Dehydration (ED), Cyclic Vomiting Syndrome (ED) Additional Instructions: Highly recommend you refrain from alcohol use as well as marijuana use. Use the Zyprexa scheduled for the next 2-3 days, can use as needed after that for recurrent symptoms. Do recommend that you follow up in clinic within the next 1-2 weeks, review plan of treatment for cyclic vomiting syndrome as well as have your liver enzymes rechecked. They have greatly improved today but do want to make sure they return to normal. The hepatitis panel is still pending and we will notify you if there are any concerning changes on that panel. Activity Level: Activity as Tolerated Prescriptions: New olanzapine [Zyprexa] 5 mg tablet 5 mg PO DAILY Qty: 10 0RF Rx Instructions: Take daily scheduled for the next 2-3 days depending on your symptoms. If improved, can use as needed in the future for recurrent symptoms of cyclic vomiting. No Action ondansetron 4 mg tablet,disintegrating 4 mg PO Q6H Qty: 20 0RF Follow Up/Referrals: Provider,Not a Local [Primary Care Provider] - Stand Alone Forms: [employer] Info Instructions
[2024-09-26 08:11] VITALS: O2SAT 97
[2024-09-26] MEDS: ONDANSETRON 2 MG/ML inj 4 MG IVP ×2 (08:18→13:05)
[2024-09-26] MEDS: KETOROLAC 15 MG/ML inj IVP ×2 (08:18→09:13)
--- OUTSIDE RECORDS SUMMARY | 2024-09-26 08:19 | XMS_ITS | Clinical Summary ---
Author Organization [facility] Address [address] [address] Phone Care Team Providers Care Wet Washer Machine Name Role Phone Unavailable Primary Care Provider [...] for anxiety. 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 No 2023 Sex and Gender Information Value Date Recorded Sex Assigned at Not on file Legal Sex Male 7:10 AM VENTURE CAPITALIST Gender Identity Not on file Sexual Orientation [...] 72.6 kg (160 lb) 08/29/2023 7:21 AM VENTURE CAPITALIST Height 170.2 cm (5' 7) 08/11/2023 2:39 PM VENTURE CAPITALIST Body Mass Index 25.06 08/11/2023 2:39 PM VENTURE CAPITALIST Plan of Treatment Health Maintenance Due Date [...] to complete this topic [place] [address] [address] [place] [id number]
[2024-09-26 08:25] LABS: Basophils Absolute Auto 0.03 K/uL (0.00-0.30); Basophils Percent Auto 0.4 % (0.0-3.0); Eosinophils Absolute Auto 0.04 K/uL (0.00-0.50); Eosinophils Percent Auto 0.5 % (0.0-7.0); Hemoglobin* 15.5 gm/dL (13.5-17.5); Immature Granulocytes Abs Auto 0.01 K/uL (0.00-0.30); Immature Granulocytes Pct Auto 0.1 %; Lymphocytes Absolute Auto 1.84 K/uL (0.90-2.90); Lymphocytes Percent Auto 23.5 % (20-44); Mean Corpuscular HGB Conc 36 gm/dL (32-36); Mean Corpuscular Hemoglobin 32 pg (26-34); Mean Corpuscular Volume 90 fL (80-100); Monocytes Percent Auto 8.7 % (0.0-11.0); Neutrophils Absolute Auto 5.23 K/uL (1.7-7.0); Neutrophils Percent Auto 66.8 % (42.0-72.0); Platelet Count* 203 K/uL (140-440); RDW Coefficient of Variation % 12.2 % (11.5-15.5); Red Blood Count 4.78 m/uL (4.30-5.90); White Blood Count* 7.83 K/uL (4.50-11.00)
[2024-09-26] MEDS: 0.9 % SODIUM CHLORIDE 1000 ml 1,000 ML 500 ML IV (08:25)
[2024-09-26 08:26] LABS: HCO3 VBG 22 mmol/L (21-28); PCO2 VBG 20 mmHG (40-50); PO2 VBG 38.6 mmHG (25-47)
[2024-09-26 08:29] VITALS: BP 140/91
[2024-09-26 08:33] LABS: Slide Review Reflex No; pH VBG 7.644 (7.32-7.43)
[2024-09-26 08:34] LABS: Lactate* 3.2 mmol/L (0.5-1.9)
[2024-09-26 08:44] LABS: Chloride* 99 mmol/L (96-114)
[2024-09-26 08:45] LABS: Potassium* 3.3 mmol/L (3.6-5.1); Sodium* 136 mmol/L (135-149)
[2024-09-26 08:47] LABS: Appearance Urine Clear (Clear); Bilirubin Urine 2+ (Negative); Blood Urine Negative (Negative); Color Urine Amber (Yellow); Glucose Urine Negative (Negative); Ketones Urine 3+ (Negative); Leukocyte Esterase Urine Negative (Negative); Nitrite Urine Negative (Negative); Protein Urine 2+ (Negative); Specific Gravity Urine 1.025 (1.000-1.030); pH Urine 6.5 (5.0-8.5)
[2024-09-26 08:47] LABS: Alkaline Phosphatase* 77 U/L (40-150); Amylase* 83 U/L (18-89); Anion Gap 18 mEq/L (7-15); Aspartate Amino Transferase* 58 U/L (12-35); Bilirubin Direct* 0.5 mg/dL (0.0-0.5); Bilirubin Total* 1.5 mg/dL (0.1-1.5); Blood Urea Nitrogen* 17 mg/dL (5-24); Carbon Dioxide* 19 mmol/L (20-32); Creatinine* 0.8 mg/dL (0.5-1.5); Est. Creatinine Clearance* 111.35; Estimated Glomerular Filt Rate 115 ml/min; Glucose* 141 mg/dL (60-115)
[2024-09-26 08:48] LABS: Alanine Aminotransferase* 227 U/L (4-50); Calcium* 10.1 mg/dL (8.4-10.6); Ethanol* < 0.01 % (0.01-0.03); Gamma Glutamyl Transpeptidase* 61 U/L (8-55); Lactate Dehydrogenase* 214 U/L (120-246); Lipase* 73 U/L (23-300)
[2024-09-26 08:50] LABS: C Reactive Protein* 0.7 mg/dL (0.5-1.0)
[2024-09-26 08:55] LABS: RBC Urine 0-2 (0-2); Squamous Epithelial Cell Urine Few (None-Few); WBC Urine 0-2 (0-5)
[2024-09-26 08:56] LABS: Bacteria Urine Moderate; Mucus Urine Moderate
[2024-09-26 08:58] LABS: NT Pro B Type NatriureticPept* 21 pg/mL
[2024-09-26 08:58] LABS: Amphetamine Screen Urine Negative (Negative); Barbiturate Screen Urine Negative (Negative); Benzodiazepines Screen Urine Negative (Negative); Cannabinoid Screen Urine POSITIVE (Negative); Cocaine Screen Urine Negative (Negative); Methadone Screen Urine Negative (Negative); Methamphetamines Screen Urine Negative (Negative); Opiate Screen Urine Negative (Negative); Oxycodone Screen Urine Negative (Negative); Phencyclidine Screen Urine Negative (Negative); Tricyclic Antidepressant Urine Negative (Negative)
[2024-09-26 09:00] LABS: Troponin I* < 0.01 ng/mL (0.01-0.04)
[2024-09-26] MEDS: OLANZapine 5 MG/ML inj IVP (09:13)
[2024-09-26] MEDS: 0.9 % SODIUM CHLORIDE 1000 ml 1,000 ML IV (09:55)
[2024-09-26 10:04] VITALS: BP 139/78; PULSE 84; RESP 18; O2SAT 97
[2024-09-26 10:52] LABS: Erythrocyte SedimentationRate* 4 mm/hr (2-15)
[2024-09-26] MEDS: LACTATED RINGERS 1000 ML 1,000 ML IV (12:17)
[2024-09-26] MEDS: OLANZapine 5 MG TAB.RAPDIS PO (13:06)
== END 2024-09-26 13:30 | disposition home or self-care (01) ==
PROVIDERS: Emergency Provider Family Medicine
DX: E86.0 Dehydration (principal); R11.15 Cyclical vomiting syndrome unrelated to migraine
CPT/HCPCS: 36415; 76705; 80053; 80306; 81001; 82077; 82150; 82248; 82803; 82977; 83605; 83615; 83690; 83880; 84484; 85025; 85651; 86140; 87086; 94761; 96361; 96374; 96375; 96376; 99284; 99285; A9270; J1885; J2405; J7030; J7120

== ENCOUNTER 2024-09-28 05:20 | Emergency (ER) | payer MEDICAID, SELFPAY ==
--- OUTSIDE RECORDS SUMMARY | 2024-09-28 05:22 | XMS_ITS | Clinical Summary ---
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
--- OUTSIDE RECORDS SUMMARY | 2024-09-28 05:22 | XMS_ITS | Clinical Summary ---
Author Organization [facility] Address [address] [address] Phone Care Team Providers Care Liquid Compounder Name Role Phone Unavailable Primary Care Provider [...] for anxiety. 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 No 2023 Sex and Gender Information Value Date Recorded Sex Assigned at Not on file Legal Sex Male 7:10 AM SERVICE OBSERVER CHIEF Gender Identity Not on file Sexual Orientation [...] 72.6 kg (160 lb) 08/29/2023 7:21 AM SERVICE OBSERVER CHIEF Height 170.2 cm (5' 7) 08/11/2023 2:39 PM SERVICE OBSERVER CHIEF Body Mass Index 25.06 08/11/2023 2:39 PM SERVICE OBSERVER CHIEF Plan of Treatment Health Maintenance Due Date [...] patient's age to complete this topic Insurance [place] [id number]
[2024-09-28 05:27] VITALS: PULSE 46; TEMP 36.6; O2SAT 98; BMI 21.1
--- NOTE | 2024-09-28 05:27 | ED.ABDPAIN ---
HPI - Abdominal Pain General Time Seen by Provider: 05:27 Date Seen: 09/28/24 Chief Complaint: Abdominal Pain Stated Complaint: Abdominal pain Time Seen by Provider: 09/28/24 05:26 Source: patient, RN notes reviewed and old records reviewed Mode of arrival: ambulatory Limitations: no limitations History of Present Illness HPI narrative: For 39-year-old male well-known to the emergency department with multiple recent visits for nausea vomiting. Patient says symptoms restarted, he did not fill prescriptions for the medications that was get a couple days ago. Diffuse abdominal pain. Admits to diarrhea. Patient denies recent alcohol use. Patient initially denies drug use same he had used for several years, when we talked about his positive drug screen from couple days ago he says ?marijuana isn't a drug? and then says that he does not smoke as much as I used to.' no fever chills, no lightheadedness or dizziness. Related Data Previous Rx's ?Medication ?Instructions ?Recorded ondansetron 4 mg disintegrating 4 mg PO Q6H #20 tabs 09/24/24 tablet olanzapine 5 mg tablet (Zyprexa) 5 mg PO DAILY #10 tabs 09/26/24 Allergies Allergy/AdvReac Type Severity Reaction Status Date / Time Penicillins Allergy Mild Hives Verified 09/26/24 07:56 [facility] Medical History (Updated 09/28/24 @ 05:50 by Denilson Vickers MD) Cyclic vomiting syndrome ?R11.15 - Cyclical vomiting syndrome unrelated to migraine (ICD-10) Social History Smoking Status: Current every day smoker Do you use any of these nicotine containing products: Vaping Products How often do you have a drink containing alcohol: never How often do you have six or more drinks on one occasion: Never AUDIT-C Alcohol total score: 0 Non-prescribed substance use: marijuana (any form) Exam Const: Vital Signs, click to edit/add: Vital Signs - 24 hr 09/28/24 05:27 09/28/24 07:30 Temperature 98 F Pulse Rate [Pulse Oximeter] 46 L 55 L Respiratory Rate 16 Pulse Oximetry 98 97 Oxygen Delivery Me thod Room Air Room Air Course Course ED Course: Reviewed most recent emergency department visit from September 26, history of cyclic vomiting, complaining of nausea, vomiting, diarrhea, abdominal pain. Patient was given 3 L of fluid at that time, was given Zyprexa, Zofran, Toradol. Urine drug screen positive for marijuana. Patient presents today with current nausea, vomiting, abdominal pain. Has had two prior visits for this recently. Patient with ongoing marijuana use, no prior abdominal surgeries. Recent negative ultrasound, also recently seen with elevated liver enzymes although these were drown trending at his previous visit, would recommend repeating LFTs, lipase, and basic panel. Patient refuses to have labs done today. Patient will be given Toradol IM, Zyprexa IM and observed in the department. Patient is noted to be putting his fingers down his throat while on camera Reevaluation(s) Time of Reevaluation #1: 06:27 Reevaluation #1: Symptoms are improved. Challenge of oral liquids and anticipate discharge. Time of Reevaluation #2: 08:09 Reevaluation #2: Patient is still in the department, is now sipping some apple juice. Vital Signs Vital signs: Initial Vital Signs Temperature 98 F 09/28/24 05:27 Temperature Source Temporal Artery Scan 09/28/24 05:27 Pulse Rate 46 L 09/28/24 05:27 Pulse Oximetry 98 09/28/24 05:27 Oxygen Delivery Method Room Air 09/28/24 05:27 Vital Signs Temperature 98 F 09/28/24 05:27 Pulse Rate 46 L 09/28/24 05:27 Pulse Oximetry 98 09/28/24 05:27 Oxygen Delivery Method Room Air 09/28/24 05:27 Temperature 98 F 09/28/24 05:27 Pulse Rate 55 L 09/28/24 07:30 Respiratory Rate 16 09/28/24 07:30 Pulse Oximetry 97 09/28/24 07:30 Oxygen Delivery Method Room Air 09/28/24 07:30 Medications Administered Medications: Discontinued Medications Generic Name Dose Route Start Last Admin Trade Name Freq PRN Reason Stop Dose Admin Ketorolac Tromethamine 30 mg 09/28/24 05:48 09/28/24 05:54 Ketorolac 30 Mg/Ml Inj IM 09/28/24 05:49 30 mg ONCE ONE Administration Olanzapine 10 mg 09/28/24 05:48 09/28/24 05:54 Olanzapine 5 Mg/Ml Inj IM 09/28/24 05:49 10 mg ONCE ONE Administration Ondansetron HCl 8 mg 09/28/24 06:37 09/28/24 07:21 Ondansetron Odt 4 Mg Tab PO 09/28/24 06:38 8 mg ONCE ONE Administration Discharge Plan Discharge Clinical Impression: Cyclic vomiting syndrome Nausea & vomiting Qualifiers: Vomiting type: unspecified Qualified Code(s): R11.2 - Nausea with vomiting, unspecified Patient Disposition: Home, Self-Care Condition: Stable Instructions: Acute Nausea and Vomiting (ED) Additional Instructions: Avoid alcohol, caffeinated and carbonated beverages. [place] diet for 24 hours. Stop smoking marijuana Activity Level: Activity as Tolerated Discharge Diet: Clear Liquid Prescriptions: No Action ondansetron 4 mg tablet,disintegrating 4 mg PO Q6H Qty: 20 0RF olanzapine [Zyprexa] 5 mg tablet 5 mg PO DAILY Qty: 10 0RF Rx Instructions: Take daily scheduled for the next 2-3 days depending on your symptoms. If improved, can use as needed in the future for recurrent symptoms of cyclic vomiting. Follow Up/Referrals: Provider,Not a Local [Primary Care Provider] - Stand Alone Forms: [employer] Info Instructions
--- OUTSIDE RECORDS SUMMARY | 2024-09-28 05:53 | XMS_ITS | Clinical Summary ---
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
--- OUTSIDE RECORDS SUMMARY | 2024-09-28 05:53 | XMS_ITS | Clinical Summary ---
Author Organization [facility] Address [address] [address] Phone Care Team Providers Care Data Consultant Name Role Phone Unavailable Primary Care Provider [...] for anxiety. 30 Tablet 08/11/2023 3:11 PM PROTOTYPE MODEL MAKER 08/11/2023 Active Active Problems Problem Noted Date Diagnosed Date Chemical dependency 01/05/2013 Alcohol dependence, daily use 12/11/2012 Cannabis dependence 12/11/2012 Moderate recurrent major depression 12/11/2012 Immunizations Name Administration Dates Next Due Tdap (7 years and older) 12/23/2022 Social History Tobacco Use Types Packs/Day Years Used Date Smoking Tobacco: Every Day Cigarettes Smokeless Tobacco: Former PHQ-2 Answer Date Recorded PHQ-2 Total 0 04/11/2023 [facility] Custom IPV Answer Date Recorded Do you feel UNSAFE in any of your personal relationships with your family members or any other acquaintances? No 2023 Sex and Gender Information Value Date Recorded Sex Assigned at Not on file Legal Sex Male 7:10 AM PROTOTYPE MODEL MAKER Gender Identity Not on file Sexual Orientation [...] 72.6 kg (160 lb) 08/29/2023 7:21 AM PROTOTYPE MODEL MAKER Height 170.2 cm (5' 7) 08/11/2023 2:39 PM PROTOTYPE MODEL MAKER Body Mass Index 25.06 08/11/2023 2:39 PM PROTOTYPE MODEL MAKER Plan of Treatment Health Maintenance Due Date [...] patient's age to complete this topic [place] [address] [address]
[2024-09-28] MEDS: KETOROLAC 30 MG/ML inj IM (05:54)
[2024-09-28] MEDS: OLANZapine 5 MG/ML inj 10 MG IM (05:54)
[2024-09-28] MEDS: ONDANSETRON ODT 4 MG TAB 8 MG PO (07:21)
--- NOTE | 2024-09-28 07:24 | PC.NURSE ---
Patient refused BP to be taken. Patient stated It hurts my arm. Educated patient on the need to check the BP but patient continued to refused. Patient requested the zofran at this time. This was administered. Encouraged patient to try something PO. Patient refused stating Its just going to make my stomach hurt
[2024-09-28 07:30] VITALS: PULSE 55; RESP 16; O2SAT 97
== END 2024-09-28 08:20 | disposition home or self-care (01) ==
LOC: ED 05:50
PROVIDERS: Emergency Provider Family Medicine
DX: R11.15 Cyclical vomiting syndrome unrelated to migraine (principal)
CPT/HCPCS: 96372; 99283; 99284; A9270; J1885

== ENCOUNTER 2025-01-06 07:33 | Emergency (ER) | payer MEDICAID, SELFPAY ==
--- OUTSIDE RECORDS SUMMARY | 2025-01-06 07:35 | XMS_ITS | Clinical Summary ---
Author Organization [facility] Address [address] [address] Phone Care Team Providers Care Steward/Stewardess Room Name Role Phone Unavailable Primary Care Provider [...] for anxiety. 30 Tablet 08/11/2023 3:11 PM MOTION PICTURE EQUIPMENT SUPERVISOR 08/11/2023 Active Active Problems Problem Noted Date Diagnosed Date Chemical dependency 01/05/2013 Alcohol dependence, daily use 12/11/2012 Cannabis dependence 12/11/2012 Moderate recurrent major depression 12/11/2012 Immunizations Immunization Administration Dates Next Due Tdap (7 years and older) 12/23/2022 Social History Tobacco Use Types Packs/Day Years Used Date Smoking Tobacco: Every Day Cigarettes Smokeless Tobacco: Former PHQ-2 Answer Date Recorded PHQ-2 Total 0 04/11/2023 [facility] Custom IPV Answer Date Recorded Do you feel UNSAFE in any of your personal relationships with your family members or any other acquaintances? No 2023 Sex and Gender Information Value Date Recorded Sex Assigned at Not on file Legal Sex Male 7:10 AM MOTION PICTURE EQUIPMENT SUPERVISOR Gender Identity Not on file Sexual Orientation [...] 72.6 kg (160 lb) 08/29/2023 7:21 AM MOTION PICTURE EQUIPMENT SUPERVISOR Height 170.2 cm (5' 7) 08/11/2023 2:39 PM MOTION PICTURE EQUIPMENT SUPERVISOR Body Mass Index 25.06 08/11/2023 2:39 PM MOTION PICTURE EQUIPMENT SUPERVISOR Plan of Treatment Health Maintenance Due Date Last Done Comments Hepatitis B Vaccine (Standin g Order) (1 of 3 - 19+ 3-dose series) 2004 Pneumococcal/PCV20 Vaccine: Pediatrics (2-5 yrs) and At-Risk Patients (6-49 yrs) (Standing Order) (1 of 2 - PCV) 2004 TETANUS (Standing Order) 12/23/2032 12/23/2022 PERTUSSIS (Standing Order) Completed 12/23/2022 HPV Vaccine (Standing Order) Aged Out No longer eligible based on patient's age to complete this topic Insurance * Guarantor: Awais Avila Account Type Relation to Patient Date of Phone Billing Address Personal/Family Self [address] [place], [place] [id number]
--- OUTSIDE RECORDS SUMMARY | 2025-01-06 07:35 | XMS_ITS | Clinical Summary ---
Author Organization [facility] Address [address] [place] [id number] Care Team Providers Care Pet Supplies Salesperson Name Role Phone Debra Ingram Primary Care Provider [phone] Allergies Active Allergy Reactions Criticality Noted Date [...] on file Legal Sex Male 6:16 AM SANITARY PLUMBER Gender Identity Not on file Sexual Orientation [...] C screening for ag e 18-79 2003 Hepatitis B series for 19+ ( 1 of 3 - 19+ 3-dose series) 2004 Lipids for age 35-44 2020 Tetanus booster 12/10/2022 12/10/2012 COVID-19 vaccine series ( season) 2024 Influenza Vaccine (Season Ended) 2025 Tdap Completed 12/10/2012 Pneumococcal series for age 6-49 Aged Out 08/04/19 15 No longer eligible based on patient's age to complete this topic Insurance BLUE ADVANTAGE [facility] Advance Directives * Full Code (Latest [...] 3:32 PM 12/16/2012 11:41 AM Care Teams Pet Supplies Salesperson Relationship Specialty Start Date End Date Debra Ingram MBBS [address] [phone] PCP - General Internal Medicine 03/18/24
[2025-01-06 07:37] VITALS: PULSE 62; RESP 22; TEMP 36.1; O2SAT 100
[2025-01-06] MEDS: OLANZapine 5 MG/ML inj 10 MG IM (08:05)
[2025-01-06] MEDS: ONDANSETRON 2 MG/ML inj 4 MG IVP (08:19)
[2025-01-06] MEDS: 0.9 % SODIUM CHLORIDE 1000 ml 1,000 ML IV (08:19)
[2025-01-06 08:20] LABS: Lactate* 2.8 mmol/L (0.5-1.9)
--- NOTE | 2025-01-06 08:26 | ED_ITS ---
HPI - General Adult General Chief complaint: Nausea/Vomiting Stated complaint: THROWING UP Time Seen by Provider: 01/06/25 07:55 Source: patient Mode of arrival: ambulatory Limitations: no limitations History of Present Illness HPI narrative: 39-year-old male presenting today with 4 hours of nonstop vomiting. Patient has been in this ER for the same complaint multiple times. Has been diagnosed with cyclic vomiting secondary to marijuana use. Patient states that he does continue to use marijuana. He states that he feels cold. Last bowel movement was this morning. No blood in his stool or vomit. Vomit or stools are not dark or tarry. He complains of abdominal pain that is diffuse. Related Data Previous Rx's ?Medication ?Instructions ?Recorded olanzapine 5 mg tablet (Zyprexa) 5 mg PO BID PRN #10 t abs 01/06/25 ondansetron HCl 4 mg tablet 4 mg PO TID PRN nausea and 01/06/25 vomiting #10 tabs Allergies Allergy/AdvReac Type Severity Reaction Status Date / Time Penicillins Allergy Mild Hives Verified 01/06/25 07:44 Review of Systems Status of ROS: Reports: 10 or more systems reviewed and unremarkable except as noted in History and below [facility] Medical History Cyclic vomiting syndrome ?R11.15 - Cyclical vomiting syndrome unrelated to migraine (ICD-10) Social History Smoking Status: Current every day smoker Do you use any of these nicotine containing products: Vaping Products How often do you have a drink containing alcohol: never How often do you have six or more drinks on one occasion: Never AUDIT-C Alcohol total score: 0 Non-prescribed substance use: marijuana (any form) Exam Narrative: Exam Narrative: Well-nourished well-developed patient , thrashing in bed. Alert and oriented x3. Patient does not want to answer questions. Answers most questions with yes or no. HEENT: Normocephalic atraumatic. Pupils are equally round reactive to light. Extraocular muscles are intact. Conjunctivae are moist without any icterus noted. Moist mucous membranes. Cannot see the posterior pharynx as patient is not cooperating. Cardiovascular: Heart is regular rate and rhythm S1 and S2 are present without any murmurs. Lungs: Clear to auscultation bilaterally no wheezes rhonchi or rales are appreciated. Abdomen: Soft with normal bowel sounds. Complains of diffuse tenderness with light palpation. Has some guarding. Extremities: Bilateral lower extremities are without edema. Normal DP and PT pulses. Skin: Well perfused without any obvious rashes. Const: Vital Signs, click to edit/add: Vital Signs - 24 hr 01/06/25 07:37 01/06/25 08:38 Temperature 97 F L Pulse Rate [Pulse Oximeter] 62 73 Respiratory Rate 22 20 Blood Pressure [Le ft Upper Arm] 114/81 Pulse Oximetry 100 99 Oxygen Delivery Me thod Room Air Room Air Course Course ED Course: IV established, patient is given Zofran, Zyprexa and normal saline. Toradol given for discomfort. Labs were drawn. CBC is unremarkable. Chemistries are unremarkable. Lactate was elevated at 2.8. LFTs slightly elevated, better than they have been in the past. Vomiting stopped with treatment however patient continued to state that he felt nauseated. Multiple times he put his fingers down his throat to induce vomiting. However, he was able to go in sleep while he was here and again, without inducing vomiting he did not have any more spontaneous vomiting. Despite treatment he was still complaining of diffuse abdominal pain but did not get any better. Because of this I ordered an abdominal CT scan. Patient states that he does not wish to have a scan done. We discussed that if his pain continues it could be other things causing his pain and he stated that he was certain that it was not and he refuses a scan at this time. We discussed next steps, patient stated that he felt comfortable being discharged home with medications to take at home as needed. Vital Signs Vital signs: Initial Vital Signs Temperature 97 F L 01/06/25 07:37 Temperature Source Temporal Artery Scan 01/06/25 07:37 Pulse Rate 62 01/06/25 07:37 Pulse Rhythm Regular 01/06/25 07:37 Respiratory Rate 22 01/06/25 07:37 Blood Pressure Position Sitting 01/06/25 07:37 Pulse Oximetry 100 01/06/25 07:37 Oxygen Delivery Method Room Air 01/06/25 07:37 Vital Signs Temperature 97 F L 01/06/25 07:37 Pulse Rate 62 01/06/25 07:37 Respiratory Rate 22 01/06/25 07:37 Pulse Oximetry 100 01/06/25 07:37 Oxygen Delivery Method Room Air 01/06/25 07:37 Temperature 97 F L 01/06/25 07:37 Pulse Rate 73 01/06/25 08:38 Respiratory Rate 20 01/06/25 08:38 Blood Pressure 114/81 01/06/25 08:38 Pulse Oximetry 99 01/06/25 08:38 Oxygen Delivery Method Room Air 01/06/25 08:38 Medications Administered Medications: Discontinued Medications Generic Name Dose Route Start Last Admin Trade Name Freq PRN Reason Stop Dose Admin Sodium Chloride 1,000 mls @ 1,000 mls/hr 01/06/25 08:00 01/06/25 09:12 0.9 % Sodium Chloride 1000 Ml IV 01/06/25 08:59 Infused .Q1H AN Infusion Ketorolac Tromethamine 30 mg 01/06/25 08:41 01/06/25 08:44 Ketorolac 30 Mg/Ml Inj IVP 01/06/25 08:42 30 mg ONCE ONE Administration Olanzapine 10 mg 01/06/25 07:55 01/06/25 08:05 Olanzapine 5 Mg/Ml Inj IM 01/06/25 07:56 10 mg ONCE ONE Administration Ondansetron HCl 4 mg 01/06/25 07:55 01/06/25 08:19 Ondansetron 2 Mg/Ml Inj IVP 01/06/25 07:56 4 mg ONCE ONE Administration Medical Decision Making MDM Narrative Medical decision making narrative: [age] year male with cyclic vomiting. Will be discharged home with Zofran and Zyprexa. Lab Data Lab results reviewed: Yes I reviewed the patient's lab results Labs: Lab Results 01/06/25 Range/Units 08:15 WBC 5.89 (4.50-11.00) K/uL RBC 4.68 (4.30-5.90) m/uL Hgb 15.2 (13.5-17.5) gm/dL Hct 42.7 (37.0-53.0) % MCV 91 (80-100) fL MCH 33 (26-34) pg MCHC 36 (32-36) gm/dL RDW Coeff of Cole 12.1 (11.5-15.5) % Plt Count 197 (140-440) K/uL Neut % (Auto) 77.2 H (42.0-72.0) % Lymph % (Auto) 17.3 L (20-44) % Ford % (Auto) 4.8 (0.0-11.0) % Eos % (Auto) 0.5 (0.0-7.0) % Baso % (Auto) 0.2 (0.0-3.0) % Neut # (Auto) 4.50 (1.7-7.0) K/uL Lymph # (Auto) 1.00 (0.90-2.90) K/uL Ford # (Auto) 0.30 (0.00-0.90) K/UL Eos # (Auto) 0.03 (0.00-0.50) K/uL Baso # (Auto) 0.01 (0.00-0.30) K/uL Abs Immat Gran (auto) 0.00 (0.00-0.30) K/uL Imm/Tot Granulo (auto) 0.0 % Sodium 137 (135-149) mmol/L Potassium 3.7 (3.6-5.1) mmol/L Chloride 105 (96-114) mmol/L Carbon Dioxide 19 L (20-32) mmol/L Anion Gap 13 (7-15) mEq/L BUN 19 (5-24) mg/dL Creatinine 0.8 (0.5-1.5) mg/dL Estimated GFR 115 ml/min Glucose 151 H (60-115) mg/dL Lactate 2.8 H (0.5-1.9) mmol/L Calcium 10.0 (8.4-10.6) mg/dL Total Bilirubin 0.9 (0.1-1.5) mg/dL Direct Bilirubin 0.2 (0.0-0.5) mg/dL AST 48 H (12-35) U/L ALT 60 H (4-50) U/L Alkaline Phosphatase 54 (40-150) U/L Total Protein 7.4 (6.0-8.3) g/dL Albumin 4.8 (3.3-5.0) g/dL Lipase 48 (23-300) U/L Discharge Plan Discharge Clinical Impression: Cannabinoid hyperemesis syndrome Patient Disposition: Home, Self-Care Condition: Stable Instructions: Acute Abdominal Pain (ED) Additional Instructions: Even a small amounts of marijuana can cause this vomiting. Recommend you stop using marijuana altogether. Prescriptions: New olanzapine [Zyprexa] 5 mg tablet 5 mg PO BID PRNQty: 10 0RF ondansetron HCl 4 mg tablet 4 mg PO TID PRN (Reason: nausea and vomiting) Qty: 10 0RF Follow Up/Referrals: Provider,Not a Local [Primary Care Provider, Family Practice] Stand Alone Forms: [employer] Info Instructions
[2025-01-06 08:28] LABS: Basophils Absolute Auto 0.01 K/uL (0.00-0.30); Basophils Percent Auto 0.2 % (0.0-3.0); Eosinophils Absolute Auto 0.03 K/uL (0.00-0.50); Eosinophils Percent Auto 0.5 % (0.0-7.0); Hematocrit 42.7 % (37.0-53.0); Hemoglobin* 15.2 gm/dL (13.5-17.5); Lymphocytes Percent Auto 17.3 % (20-44); Mean Corpuscular HGB Conc 36 gm/dL (32-36); Mean Corpuscular Hemoglobin 33 pg (26-34); Mean Corpuscular Volume 91 fL (80-100); Monocytes Percent Auto 4.8 % (0.0-11.0); Neutrophils Percent Auto 77.2 % (42.0-72.0); Platelet Count* 197 K/uL (140-440); RDW Coefficient of Variation % 12.1 % (11.5-15.5); Red Blood Count 4.68 m/uL (4.30-5.90); White Blood Count* 5.89 K/uL (4.50-11.00)
[2025-01-06 08:35] LABS: Albumin* 4.8 g/dL (3.3-5.0)
[2025-01-06 08:36] LABS: Chloride* 105 mmol/L (96-114); Potassium* 3.7 mmol/L (3.6-5.1); Sodium* 137 mmol/L (135-149)
[2025-01-06 08:38] VITALS: BP 114/81; PULSE 73; RESP 20; O2SAT 99
[2025-01-06 08:38] LABS: Blood Urea Nitrogen* 19 mg/dL (5-24); Creatinine* 0.8 mg/dL (0.5-1.5); Estimated Glomerular Filt Rate 115 ml/min
[2025-01-06 08:39] LABS: Alanine Aminotransferase* 60 U/L (4-50); Alkaline Phosphatase* 54 U/L (40-150); Anion Gap 13 mEq/L (7-15); Aspartate Amino Transferase* 48 U/L (12-35); Bilirubin Direct* 0.2 mg/dL (0.0-0.5); Bilirubin Total* 0.9 mg/dL (0.1-1.5); Carbon Dioxide* 19 mmol/L (20-32); Glucose* 151 mg/dL (60-115); Lipase* 48 U/L (23-300); Total Protein* 7.4 g/dL (6.0-8.3)
[2025-01-06] MEDS: KETOROLAC 30 MG/ML inj IVP (08:44)
[2025-01-06 08:53] LABS: Slide Review Reflex No
== END 2025-01-06 09:32 | disposition home or self-care (01) ==
PROVIDERS: Emergency Provider Family Medicine
DX: R11.2 Nausea with vomiting, unspecified (principal); F12.920 Cannabis use, unspecified with intoxication, uncomplicated
CPT/HCPCS: 36415; 80048; 80076; 80306; 83605; 83690; 85025; 96374; 96375; 99284; J1885; J2405; J7030

== ENCOUNTER 2025-01-08 11:40 | Emergency (ER) | payer MEDICAID, SELFPAY ==
--- OUTSIDE RECORDS SUMMARY | 2025-01-08 11:42 | XMS_ITS | Clinical Summary ---
Author Organization [facility] Address [address] [address] Phone Care Team Providers Care Airconditioning Drafting Officer Name Role Phone Unavailable Primary Care Provider [...] for anxiety. 30 Tablet 08/11/2023 3:11 PM PHOTO SPECIALIST 08/11/2023 Active Active Problems Problem Noted Date Diagnosed Date Chemical dependency 01/05/2013 Alcohol dependence, daily use 12/11/2012 Cannabis dependence 12/11/2012 Moderate recurrent major depression 12/11/2012 Immunizations Immunization Administration Dates Next Due Tdap (7 years and older) 12/23/2022 Social History Tobacco Use Types Packs/Day Years Used Date Smoking Tobacco: Every Day Cigarettes Smokeless Tobacco: Former PHQ-2 Answer Date Recorded PHQ-2 Total 0 04/11/2023 [facility] Custom IPV Answer Date Recorded Do you feel UNSAFE in any of your personal relationships with your family members or any other acquaintances? No 2023 Sex and Gender Information Value Date Recorded Sex Assigned at Not on file Legal Sex Male 7:10 AM PHOTO SPECIALIST Gender Identity Not on file Sexual Orientation [...] 72.6 kg (160 lb) 08/29/2023 7:21 AM PHOTO SPECIALIST Height 170.2 cm (5' 7) 08/11/2023 2:39 PM PHOTO SPECIALIST Body Mass Index 25.06 08/11/2023 2:39 PM PHOTO SPECIALIST Plan of Treatment Health Maintenance Due Date [...]
--- OUTSIDE RECORDS SUMMARY | 2025-01-08 11:42 | XMS_ITS | Clinical Summary ---
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
[2025-01-08 11:51] VITALS: BP 153/74; PULSE 66; RESP 24; TEMP 35.7; O2SAT 100; BMI 24.2
== END 2025-01-08 12:11 | disposition left against medical advice (07) ==
LOC: ED 12:09
DX: Z53.21 Procedure and treatment not carried out due to patient leaving prior to being seen by health care provider (principal)

== ENCOUNTER 2025-02-20 08:54 | Emergency (ER) | payer MEDICAID, SELFPAY ==
--- OUTSIDE RECORDS SUMMARY | 2025-02-20 08:56 | XMS_ITS | Clinical Summary ---
Author Organization [facility] Address [address] [place] [address] Care Team Providers Care Supervisor Covering And Lining Name Role Phone Debra Ingram Primary Care Provider [phone] Allergies Active Allergy Reactions Criticality Noted Date Comments Penicillin G Benzathin,Procain *Unknown - Pt Doesn't Remember 03/11/2011 Medications meloxicam 15 mg tabletIndicatio ns:Right elbow pain,Right arm pain,Paresthesi a of right arm Take 1 Tablet (15 mg) by mouth once daily. 30 Tablet 5 Active meloxicam 15 mg tabletIndicatio ns:Right elbow pain,Right arm pain,Paresthesi a of right arm Take 1 Tablet (15 mg) by mouth once daily. 30 Tablet 5 01/30/20 25 Discontinu ed(*Availa bility/For mulary change/Cos t of medication ) Active Problems Problem Noted Date Diagnosed Date Right arm pain 01/18/2025 Right elbow pain 01/18/2025 Paresthesia of right arm 01/18/2025 Eczema 05/08/2014 Overdose intentional with benadryl 01/05/2013 Suicidal intent 01/05/2013 Chemical dependency 01/05/2013 Alcohol dependence, daily use 12/11/2012 Moderate recurrent major depression 12/11/2012 Nicotine dependence 12/11/2012 Cannabis dependence 12/11/2012 Encounters Date Type Department Care Team Description 01/27/2025 Refill [facility] [address] [facility] [address] [place] [address] Debra Ingram MBBS Refill Request (Meloxicam ) 01/18/2025 8:40 AM CDT Office Visit [facility] [address] [facility] [address] [place] [address] Debra Ingram MBBS Medication Management 01/18/2025 Travel from Last 3 Months Immunizations Immunization Administration Dates Next Due COVID-19 vaccine (Moderna 100mcg/0.5mL) PF, MDV 08/22/2021 COVID-19 vaccine (Pfizer-Bio NTech 30mcg/0.3mL) PF, MDV 12/22/2020,12/01/2020 Meningococcal Vaccine (Menomune) 10/03/2005 Pneumococcal Poly,23-Valent (Pneumovax) 08/04/2014 Td, Preservative Free (age >= 7 Years) 8 Tdap 12/23/2022, 8,12/10/2012,05/18 Family History Medical History Relation Name Comments [...] drinks 1/2 to one pint per month PHQ-2 Answer Date Recorded PHQ-2 TOTAL SCORE 2 01/18/2025 Social Connections Answer Date Recorded Do you often feel lonely or isolated from those around you? 0 01/18/2025 Financial Resource Strain Answer Date R ecorded Difficulty of Paying Living Expenses 3 01/18/2025 Difficulty of Paying Living Expenses Not on file 01/18/2025 Food Insecurity Answer Date Recorded Do you worry your food will run out before you are able to buy more? 1 01/18/2025 Transportation Needs Answer Date Record ed Does lack of transportation keep you from medica l appointments? 1 01/18/2025 Does lack of transportation keep you from work, meetings or getting things that you need? 1 01/18/2025 Housing Stability Answer Date Recorded What is your housing situation today? 1 01/18/2025 Utilities Answer Date Recorded Do you have trouble paying f or utilities (for example, heat, electricity, water, phone)? 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 Gender Identity Not on file Sexual Orientation Not on file Obstetrics History Last Filed Vital Signs Vital Sign Reading Time Taken Comments Blood Pressure 98/74 01/18/2025 8:55 AM CDT Pulse 90 05/09/2014 4:35 PM CDT Temperature 36.2 C (97.1 F) 05/09/2014 4:35 PM CDT Respiratory Rate 16 05/09/2014 4:35 PM CDT Oxygen Saturation 99% 05/09/2014 4:35 PM CDT Inhaled Oxygen Concentration - - Weight 64.5 kg (142 lb 3.2 oz) 01/18/2025 8:55 A M CDT Height 175.3 cm (5' 9.02) 05/07/2014 6:07 PM CD T Body Mass Index - - Plan of Treatment Health Maintenance Due Date Last Done Comments HIV for age 15-65 2000 BMI (ht and wt on same day) for age 18+ 2003 Hepatitis C screening for ag e 18-79 2003 Hepatitis B series for 19+ ( 1 of 3 - 19+ 3-dose series) 2004 Pneumococcal series for age 6-49 (2 of 2 - PCV) 08/04/2015 08/04/2014 Lipids for age 35-44 2020 COVID-19 vaccine series (2023- season) 2024 08/22/2021, 12/22/2020, 12/01/2020 Influenza Vaccine (#1) 2025 Depression screening for age 12+ 01/18/2026 01/19/20 25 Tetanus booster 12/23/2032 12/23/2022, 12/19, 12/10/2012, Additional history exists Insurance [employer] [place] Advance Directives * Full Code (Latest Code [...] 3:32 PM 12/16/2012 11:41 AM Care Teams Supervisor Covering And Lining Relationship Specialty Start Date End Date Debra Ingram MBBS [address] [address] PCP - General Internal Medicine 03/18/24
--- OUTSIDE RECORDS SUMMARY | 2025-02-20 08:57 | XMS_ITS | Clinical Summary ---
Author Organization [facility] Address [address] [address] Phone Care Team Providers Care Mining Manager Name Role Phone Unavailable Primary Care Provider [...] for anxiety. 30 Tablet 08/11/2023 3:11 PM NECK SKEWER 08/11/2023 Active Active Problems Problem Noted Date Diagnosed Date Chemical dependency 01/05/2013 Alcohol dependence, daily use 12/11/2012 Cannabis dependence 12/11/2012 Moderate recurrent major depression 12/11/2012 Immunizations Immunization Administration Dates Next Due Tdap (7 years and older) 12/23/2022 Social History Tobacco Use Types Packs/Day Years Used Date Smoking Tobacco: Every Day Cigarettes Smokeless Tobacco: Former PHQ-2 Answer Date Recorded PHQ-2 Total 0 04/11/2023 [facility] Custom IPV Answer Date Recorded Do you feel UNSAFE in any of your personal relationships with your family members or any other acquaintances? No 2023 Sex and Gender Information Value Date Recorded Sex Assigned at Not on file Legal Sex Male 7:10 AM NECK SKEWER Gender Identity Not on file Sexual Orientation [...] 72.6 kg (160 lb) 08/29/2023 7:21 AM NECK SKEWER Height 170.2 cm (5' 7) 08/11/2023 2:39 PM NECK SKEWER Body Mass Index 25.06 08/11/2023 2:39 PM NECK SKEWER Plan of Treatment Health Maintenance Due Date [...]
[2025-02-20 09:18] VITALS: BP 129/71; PULSE 66; RESP 18; TEMP 35.8; O2SAT 98; BMI 22.8
--- NOTE | 2025-02-20 10:28 | ED.NAVMDI ---
HPI - Nausea/Vomiting/Diarrhea General Date Seen: 02/20/25 Chief complaint: Nausea/Vomiting Stated complaint: vomiting Time Seen by Provider: 02/20/25 09:49 Source: patient Mode of arrival: ambulatory Limitations: no limitations History of Present Illness HPI Narrative: Patient is a 39-year-old male with a history of cyclic vomiting syndrome presenting to the emergency department for nausea, vomiting. He also states he is having abdominal pain. States symptoms started around 01:30. Has not been able to stop vomiting since then. States previously Toradol and droperidol have helped the most for his symptoms. States he last smoked marijuana a couple more weeks ago. Per the reviewed notes of other visits he has been seen inducing vomiting himself by putting his fingers down his throat. As I was asking him further questions she just states he wants those 2 medications to help with his symptoms. Related Data Previous Rx's ?Medication ?Instructions ?Recorded ondansetron 4 mg disintegrating 4 mg PO Q6H #20 tabs 02/20/25 tablet Allergies Allergy/AdvReac Type Severity Reaction Status Date / Time Penicillins Allergy Mild Hives Verified 01/08/25 11:50 Review of Systems Narrative: Pertinent systems reviewed and were negative unless stated in HPI PFSH PFS Medical History Cyclic vomiting syndrome ?R11.15 - Cyclical vomiting syndrome unrelated to migraine (ICD-10) Social History Smoking Status: Current every day smoker Do you use any of these nicotine containing products: Vaping Products How often do you have a drink containing alcohol: never How often do you have six or more drinks on one occasion: Never AUDIT-C Alcohol total score: 0 Non-prescribed substance use: marijuana (any form) Exam Narrative: Exam Narrative: Const: Well-nourished, Well-developed, in moderate distress Eyes: PERRL, no conjunctival injection, and symmetrical lids HENT: Atraumatic external nose and ears. Moist mucous membranes. Neck: Symmetric, trachea midline, No thyromegaly. CVS: RRR, No murmurs or gallops. Peripheral pulses 2+ and equal in all extremities RESP: Unlabored respiratory effort. Clear to auscultation bilaterally. GI: Nontender/Nondistended, No rebound or guarding. MSK:Extremities w/o deformity, Normal Active ROM Skin: Warm, Dry. No rashes or lesions. Neuro: Normal Muscle tone, No focal neurological deficits. Psych: Awake, Alert, & Oriented x3. Appropriate mood and affect. Const: Vital Signs, click to edit/add: Vital Signs - 24 hr 02/20/25 09:18 Temperature 96.4 F L Pulse Rate [Pulse Oximeter] 66 Respiratory Rate 18 Blood Pressure [Ri ght Upper Arm] 129/71 Pulse Oximetry 98 Oxygen Delivery Me thod Room Air Course Vital Signs Vital signs: Initial Vital Signs Temperature 96.4 F L 02/20/25 09:18 Temperature Source Temporal Artery Scan 02/20/25 09:18 Pulse Rate 66 02/20/25 09:18 Respiratory Rate 18 02/20/25 09:18 Blood Pressure 129/71 02/20/25 09:18 Blood Pressure Mean 90 02/20/25 09:18 Blood Pressure Position Supine 02/20/25 09:18 Pulse Oximetry 98 02/20/25 09:18 Oxygen Delivery Method Room Air 02/20/25 09:18 Vital Signs Temperature 96.4 F L 02/20/25 09:18 Pulse Rate 66 02/20/25 09:18 Respiratory Rate 18 02/20/25 09:18 Blood Pressure 129/71 02/20/25 09:18 Pulse Oximetry 98 02/20/25 09:18 Oxygen Delivery Method Room Air 02/20/25 09:18 Temperature 96.4 F L 02/20/25 09:18 Pulse Rate 66 02/20/25 09:18 Respiratory Rate 18 02/20/25 09:18 Blood Pressure 129/71 02/20/25 09:18 Pulse Oximetry 98 02/20/25 09:18 Oxygen Delivery Method Room Air 02/20/25 09:18 Medications Administered Medications: Discontinued Medications Generic Name Dose Route Start Last Admin Trade Name Freq PRN Reason Stop Dose Admin Droperidol 2.5 mg 02/20/25 10:02 02/20/25 10:24 Droperidol 2.5 Mg/Ml Inj IV 02/20/25 10:03 2.5 mg ONCE ONE Administration Haloperidol Lactate 5 mg 02/20/25 11:23 02/20/25 11:47 Haloperidol 5 Mg/Ml Inj IV 02/20/25 11:24 5 mg ONCE ONE Administration Lactated Ringer's 1,000 mls @ 1,000 mls/hr 02/20/25 12:49 02/20/25 13:11 Lactated Ringers 1000 Ml IV 02/20/25 13:48 1,000 mls/hr .Q1H ONE Administration Ketorolac Tromethamine 15 mg 02/20/25 10:02 02/20/25 10:24 Ketorolac 15 Mg/Ml Inj IVP 02/20/25 10:03 15 mg ONCE ONE Administration MDM - Nausea/Vomiting/Diarrhea MDM Narrative Medical decision making narrative: Patient is a 39-year-old male presenting for nausea and vomiting. 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 Is having abdominal pain was had the same symptoms multiple times over the past few months and has also had multiple CTs in the past that have all been non concerning per chart review. I believe at this point CT scan would be unnecessary Radiation. Will start with the Toradol and droperidol to see if it helps. Patient was still nauseated sore tried given Haldol for his symptoms. Even after this he continued of some nausea and request fluids. Fluids were ordered. He was then given a dose of Zofran I informed him there is not much more we can do for him and he needs to stop smoking marijuana and can take several months for symptoms to fully go away. Again considering his he has had these symptoms multiple times over the past few months and was unknown just marijuana smoker not believe repeat imaging and lab work is necessary. he will be discharged on Zofran. Discharge Plan Discharge Clinical Impression: Cyclic vomiting syndrome Patient Disposition: Home, Self-Care Condition: Stable Additional Instructions: It may take several months after total cessation of marijuana smoking for symptoms to fully resolve. Use the Zofran as needed for nausea. Prescriptions: New ondansetron 4 mg tablet,disintegrating 4 mg PO Q6H Qty: 20 0RF Follow Up/Referrals: Provider,Not a Local [Primary Care Provider, Family Practice] Stand Alone Forms: [employer] Info Instructions
[2025-02-20] MEDS: LACTATED RINGERS 1000 ML 1,000 ML IV (13:11)
== END 2025-02-20 15:15 | disposition home or self-care (01) ==
PROVIDERS: Emergency Provider Student in an Organized Health Care Education/Training Program
DX: R11.15 Cyclical vomiting syndrome unrelated to migraine (principal); F12.90 Cannabis use, unspecified, uncomplicated
CPT/HCPCS: 96374; 96375; 99283; 99284; J1630; J1790; J1885; J7120